=== PATIENT | male | born 1965 | race Caucasian/White ===

== ENCOUNTER 2018-04-27 09:48 | Outpatient (REF) | payer OTHER, SELFPAY ==
[2018-04-27 21:42] LABS: TSH 3.77 uIU/mL (0.358-3.74)
[2018-04-27 22:15] LABS: FREE T4 0.67 ng/dL (0.76-1.46)
[2018-04-28 18:15] LABS: T3, Total 98 ng/dl (97-169)
== END 2018-04-27 10:08 ==
LOC: NCHCN 09:48
PROVIDERS: PCP Family Medicine; Visit Provider Family Medicine
DX: E05.90 Thyrotoxicosis, unspecified without thyrotoxic crisis or storm (principal)
CPT/HCPCS: 84439; 84443; 84480

== ENCOUNTER 2019-01-21 01:28 | Outpatient (CLI) | payer OTHER, SELFPAY ==
[2019-01-21 12:49] LABS: ALT 25 U/L (16-63); AST 20 U/L (15-37); Albumin 4.2 g/dL (3.4-5.0); Alkaline Phosphatase 56 U/L (46-116); Anion Gap 9.5 mmol/L (3-11); BUN 18 mg/dL (7-18); Bilirubin, Total 0.5 mg/dL (0.2-1.0); CO2 28.5 mmol/L (21.0-32.0); CREATININE 1.11 mg/dL (0.70-1.30); Calcium 8.8 mg/dL (8.5-10.1); Calculated LDL 137 mg/dL; Chloride 103 mmol/L (98-107); Cholesterol 234 mg/dL (<200); Glucose 107 mg/dL (74-106); HDL Cholesterol 43 mg/dL (40-60); Potassium 4.5 mmol/L (3.5-5.1); Sodium 141 mmol/L (136-145); TSH 0.65 uIU/mL (0.36-3.74); Total Protein 7.1 g/dL (6.4-8.2); Triglyceride 272 mg/dL (<150)
[2019-01-24 11:11] LABS: PSA, Screening 1.1 ng/mL (0.0-3.5)
== END 2019-01-21 01:48 ==
PROVIDERS: PCP Family Medicine; Referring Provider Internal Medicine Endocrinology, Diabetes & Metabolism; Visit Provider Family Medicine
DX: Z00.00 Encounter for general adult medical examination without abnormal findings (principal); E78.5 Hyperlipidemia, unspecified; Z12.5 Encounter for screening for malignant neoplasm of prostate
CPT/HCPCS: 36415; 80053; 80061; 84153; 84443

== ENCOUNTER 2019-12-20 16:41 | Outpatient (REF) | payer OTHER, SELFPAY ==
[2019-12-20 19:16] LABS: ALT 27 U/L (16-63); AST 28 U/L (15-37); Albumin 3.9 g/dL (3.4-5.0); Alkaline Phosphatase 54 U/L (46-116); Anion Gap 6.1 mmol/L (3-11); BUN 19 mg/dL (7-18); Bilirubin, Total 0.4 mg/dL (0.2-1.0); CO2 29.9 mmol/L (21.0-32.0); CREATININE 1.14 mg/dL (0.70-1.30); Chloride 102 mmol/L (98-107); Cholesterol 227 mg/dL (<200); Glucose 100 mg/dL (74-106); HDL Cholesterol 42 mg/dL (40-60); Potassium 4.8 mmol/L (3.5-5.1); Sodium 138 mmol/L (136-145); TSH (W/Ref FT4) 4.04 uIU/mL (0.36-3.74); Total Protein 6.9 g/dL (6.4-8.2); Triglyceride 478 mg/dL (<150)
[2019-12-20 19:29] LABS: LDL CHOLESTEROL 125 mg/dL (<100)
[2019-12-20 19:47] LABS: FREE T4 0.98 ng/dL (0.76-1.46)
== END 2019-12-20 17:01 ==
LOC: NCHCN 16:41
PROVIDERS: PCP Family Medicine; Visit Provider Family Medicine
DX: E78.5 Hyperlipidemia, unspecified (principal); Z00.00 Encounter for general adult medical examination without abnormal findings; E89.0 Postprocedural hypothyroidism
CPT/HCPCS: 80053; 80061; 83721; 84439; 84443

== ENCOUNTER 2020-12-20 11:45 | Outpatient (REF) | payer BC, SELFPAY ==
[2020-12-20 16:00] LABS: ALT 28 U/L (16-63); Calculated LDL 115 mg/dL (<100); Cholesterol 207 mg/dL (<200); HDL Cholesterol 42 mg/dL (40-60); TSH (W/Ref FT4) 0.45 uIU/mL (0.36-3.74); Triglyceride 252 mg/dL (<150)
[2020-12-20 22:39] LABS: PSA, Screening 1.6 ng/mL (0.0-3.5)
== END 2020-12-20 11:46 | disposition home or self-care (01) ==
LOC: NCHCN 11:45
PROVIDERS: PCP Family Medicine; Visit Provider Family Medicine
DX: E78.5 Hyperlipidemia, unspecified (principal); E89.0 Postprocedural hypothyroidism; Z00.00 Encounter for general adult medical examination without abnormal findings; Z12.5 Encounter for screening for malignant neoplasm of prostate
CPT/HCPCS: 80061; 84153; 84443; 84460

== ENCOUNTER 2021-12-24 14:46 | Outpatient (REF) | payer BC, SELFPAY ==
[2021-12-24 15:52] LABS: AST 28 U/L (15-37); Anion Gap 6.2 mmol/L (3-11); BUN 24 mg/dL (7-18); CO2 29.8 mmol/L (21.0-32.0); CREATININE 1.4 mg/dL (0.70-1.30); Calcium 9.2 mg/dL (8.5-10.1); Chloride 102 mmol/L (98-107); Estimated GFR 59.36 (mL/min/1.73m2); FREE T4 1.01 ng/dL (0.76-1.46); Glucose 110 mg/dL (74-106); Potassium 4.3 mmol/L (3.5-5.1); Sodium 138 mmol/L (136-145); TSH 1.43 uIU/mL (0.36-3.74)
[2021-12-24 16:07] LABS: Calculated LDL 163 mg/dL (<100); Cholesterol 271 mg/dL (<200); HDL Cholesterol 50 mg/dL (40-60); Triglyceride 290 mg/dL (<150)
[2021-12-25 17:34] LABS: T3,Free 3.2 pg/mL (2.8-5.3)
== END 2021-12-24 14:47 | disposition home or self-care (01) ==
LOC: NCHCN 14:46
PROVIDERS: PCP Family Medicine; Visit Provider Family Medicine
DX: Z00.00 Encounter for general adult medical examination without abnormal findings (principal); E89.0 Postprocedural hypothyroidism; E78.5 Hyperlipidemia, unspecified
CPT/HCPCS: 80048; 80061; 84439; 84443; 84450; 84481

== ENCOUNTER 2022-01-31 08:06 | Emergency (ER) | payer BC, SELFPAY ==
--- NOTE | 2022-01-31 08:15 | DI.RAD_ITS ---
Exam(s) XR PELVIS AP EXAM: XR PELVIS AP CLINICAL HISTORY: Trauma. TECHNIQUE: 2D digital imaging was performed. One image was obtained. COMPARISON: No exams were available for comparison FINDINGS: BONES: No acute fracture is present. No bony destructive lesion is seen. JOINTS: No dislocation present. No joint space narrowing is present. SOFT TISSUE: Normal. IMPRESSION: Unremarkable radiographs of the pelvis. DATA REPOSITORY: RADIATION DOSE DELIVERED:
--- NOTE | 2022-01-31 08:15 | DI.RAD_ITS ---
Exam(s) XR KNEE LT 3V AP,LAT,KYLAH EXAM: XR KNEE LT 3V AP,LAT,KYLAH CLINICAL HISTORY: Trauma, pain. TECHNIQUE: 2D digital imaging was performed of the left knee. Three images were obtained. AP, late ral and PA tunnel views were obtained. COMPARISON: No priors for comparison. FINDINGS: BONES: No acute fracture is present. No bony destructive lesion is seen. JOINTS: The knee is normally aligned. No joint effusion is seen. SOFT TISSUE: Normal. IMPRESSION: Normal radiographs of the left knee. DATA REPOSITORY: RADIATION DOSE DELIVERED:
--- NOTE | 2022-01-31 08:15 | DI.RAD_ITS ---
Exam(s) XR WRIST LT COMPLETE EXAM: XR WRIST LT COMPLETE CLINICAL HISTORY: Trauma/ Laceration. TECHNIQUE: 2D digital imaging was performed of the left wrist. Three images were obtained. PA, obl ique and lateral views were obtained. COMPARISON: No exams were available for comparison FINDINGS: BONES: There is an acute comminuted fracture of the distal metaphysis of the left radius. There is p osterior displacement of the distal fracture of about 1/3 shaft's width. No bony destructive lesion is seen. JOINTS: The carpal bones are normally aligned. SOFT TISSUE: Normal. IMPRESSION: Acute comminuted displaced distal left radial fracture. DATA REPOSITORY: RADIATION DOSE DELIVERED:
[2022-01-31 08:22] VITALS: BP 133/75; PULSE 72; RESP 18; TEMP 36.6; O2SAT 97
--- NOTE | 2022-01-31 08:27 | W.ED.GENAD ---
Discharge Plan Disposition Patient Disposition: Critical Access Hospital Specific Critical Access Facility: [facility] Condition: Stable Discharge Details Clinical Impression: Trauma, Open fracture of bone of left wrist Primary Care Provider: Tana Tapia V ED Provider: Danita Espana Home Meds and New Rx's Prescriptions: No Action levothyroxine 150 mcg tablet 1 tab PO DAILY rosuvastatin 10 mg tablet 1 tab PO DAILY Label Comments: Take 1 tablet by mouth once a day tadalafil 10 mg tablet 1 tab PO DAILY PRN magnesium oxide 400 mg magnesium Tablet 400 mg PO DAILY Discharge Instructions Instructions: Wrist Fracture in Adults (ED) Additional Instructions: Go directly to [facility]. Do not eat anything or drink anything on the way. Please go to the main entrance and check-in for day surgery. Dr. Dawson orthopedic surgeon will be seeing you there and is aware of you coming. Referrals: Tana Tapia MD [Primary Care Provider] - 1 week Discharge Data Discharge Date/Time-TO BE ENTERED AT DEPARTURE: 01/31/22 13:56 Medical Decision Making 56-year-old male presents to the ER with a chief complaint of a slip and fall off a 12 to 15 foot ledge just prior to arrival. 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 He denies any loss of consciousness, denies any headache C-spine tenderness. He does have left wrist deformity, swelling and pain with a laceration on the volar side. Bleeding controlled with dressing. He denies any back chest pelvis pain, he also complains of some left knee soreness. He is alert and oriented x4. Past medical history includes hypothyroidism, hypercholesterolemia, history of right carotid artery stenosis. Patient does have Cialis or tadalafil on his med list. CT head C-spine ordered, chest x-ray pelvis x-ray left knee x-ray and left wrist x-ray. I do suspect possible left open fracture of the wrist. Fentanyl, Zofran and a Tdap ordered. IV and Screening labs. 0849: Patient declining fentanyl and Zofran, IV Tylenol ordered. Hematoma block performed patient tolerated well anesthesia achieved. Laceration cleaned with chlorhexidine and Betadine, while cleaning did notice a vein that began to bleed, tied off with four-point 0 Vicryl and four-point 0 Ethilon bleeding controlled. Laceration left open. Iodoform gauze sterile dressing applied. 1208: Patient placed in a reverse sugar-tong volar and dorsal splint open on all 4 sides. Attempted to reduce using finger traps and gravity alignment seems better. 1215: I did discuss possible transfer to [facility] due to the mechanism of trauma and or surrounding area hospital for orthopedic surgery speciality, patient declines transfer by ambulance he would prefer to go POV. He does have his here who can drive him. He has remained hemodynamically stable alert and oriented x4 throughout his entire stay. Consulted with [facility] Ortho who recommends surgery I&D and ORIF however, he is not on-call today. I will look into transferring patient for orthopedic consultation. Images pushed to [facility] and [facility]. 1218: Call made to [facility] [place] [facility] to speak with their Ortho installation specialist, Dr. Hand, Contact will reach out to their ortho installation specialist. 1236: [facility] transfer center called for transfer request for orthopedic and trauma speciality. 1329: Spoke with Dr. Dawson with Orthopedic surgery at [facility], he reccommends pushing of additional images and patient to go directly to [facility] and register for Day surgery, keep IV in place. Discussed plan of care and recommendation for transfer plan, he declines ambulance transfer at this time and would prefer to go POV. Patient stable to go POV. 1341: Reevaluation of extremities, CMS is intact and sensation is returning after the infiltration of the bupivacaine. Patient has remained hemodynamically stable alert and oriented throughout the remainder of his stay. Patient given packet of his labs, chart and EMTALA form, instructed to go directly to [facility] and check and he verbalizes understanding is in agreement with plan. Patient instructed to stay n.p.o. Patient's IV wrapped by air liaison and special staff prior to discharge. This text was generated using [employer] dictation system, please disregard any oddities of phrase or misspellings. Medical Records Medical records reviewed: Yes I reviewed the patient's medical records. Imaging Data Radiologic Study: Imaging: CT Scan Radiologist's impression: EXAM: CT HEAD WO CLINICAL HISTORY: Trauma. TECHNIQUE: Imaging Protocol: Axial computed tomography images with coronal and sagittal reformatted images were created and reviewed COMPARISON: No exams were available for comparison FINDINGS: Ventricles and Extra axial spaces: Normal in size and morphology for the patient's age. Hemorrhage: None. Cerebral parenchyma: No acute territorial infarct. Midline shift: None. Brainstem/Cerebellum: Normal. Calvarium: Normal. Visualized Paranasal sinuses/Mastoids: Clear. Soft Tissues: Unremarkable. IMPRESSION: 1. No acute intracranial process. 2. Findings were discussed with the emergency department at 10:20 a.m. on 01/31/2022. EXAM: CT CERVICAL SPINE WO CLINICAL HISTORY: Fall, Closed head Injury. TECHNIQUE: Imaging Protocol: Axial computed tomography images with coronal and sagittal reformatted images were created and reviewed COMPARISON: No exams were available for comparison FINDINGS: Bones: No acute fracture or subluxation. There are degenerative changes seen in the cervical spine. There is straightening of the normal cervical lordosis. This may be due to muscle spasm or patient positioning. Soft Tissues: Unremarkable. Lung Apices: Clear. IMPRESSION: 1. No acute fracture or subluxation in the cervical spine. 2. Findings were discussed with Dr. Hallman at 9:35 a.m. on 01/31/2022. Radiologic Study #2: Imaging: X-Ray Radiologist's impression: EXAM: XR WRIST LT COMPLETE CLINICAL HISTORY: Trauma/ Laceration. TECHNIQUE: 2D digital imaging was performed of the left wrist. Three images were obtained. PA, oblique and lateral views were obtained. COMPARISON: No exams were available for comparison FINDINGS: BONES: There is an acute comminuted fracture of the distal metaphysis of the left radius. There is posterior displacement of the distal fracture of about 1/3 shaft's width. No bony destructive lesion is seen. JOINTS: The carpal bones are normally aligned. SOFT TISSUE: Normal. IMPRESSION: Acute comminuted displaced distal left radial fracture. Radiologic Study #3: Imaging: X-Ray My impression: CT head C-spine within normal limits no acute intracranial abnormality no hemorrhage. Unremarkable chest, pelvis x-rays, normal radiographs of the left knee. Lab Data Lab results reviewed: Yes I reviewed the patient's lab results. Labs: Laboratory Tests Range/Units 01/31/22 01/31/22 01/31/22 08:30 08:37 08:37 WBC (4.4-10.8) 10^3/uL RBC (4.36-5.78) 10^6/uL Hgb (13.5-17.5) g/dL Hct (40.0-50.0) % MCV (80-95) fL MCH (27.0-33.0) pg MCHC (32.0-36.0) % RDW (11.8-14.1) % Plt Count (130-400) 10^3/uL MPV (8.0-11.0) fL Immature Gran % Neutrophils % Lymphocytes % Monocytes % Eosinophils % Basophils % Nucleated RBC % (0.0-0.3) % Absolute Neutrophils (1.2-6.7) 10^3/uL Absolute Lymphocytes (1.2-3.4) 10^3/uL Absolute Monocytes (0.1-0.8) 10^3/uL Absolute Eosinophils (0.0-0.7) 10^3/uL Absolute Basophils (0.0-0.2) 10^3/uL Sodium (136-145) mmol/L 137 Potassium (3.5-5.1) mmol/L 4.3 Chloride (98-107) mmol/L 101 Carbon Dioxide (21.0-32.0) mmol/L 31.4 Anion Gap (3-11) mmol/L 4.6 BUN (7-18) mg/dL 21 H Creatinine (0.70-1.30) mg/dL 1.4 H Est GFR (CKD-EPI 2020) (mL/min/1.73m2) 59.36 Glucose (74-106) mg/dL 152 H Calcium (8.5-10.1) mg/dL 8.8 Magnesium (1.8-2.4) mg/dL 2.3 Total Bilirubin (0.2-1.0) mg/dL 0.5 AST (15-37) U/L 35 ALT (16-63) U/L 35 Alkaline Phosphatase (46-116) U/L 53 Total Protein (6.4-8.2) g/dL 7.3 Albumin (3.4-5.0) g/dL 4.2 Lipase (73-393) U/L 105 Urine Color (Yellow) Yellow Urine Clarity (Clear) Clear Urine pH (5-8) 6.5 Ur Specific [place] (1.005-1.025) >= 1.030 H Urine Protein (Negative) mg/dL 100 H Urine Ketones (Negative) mg/dL Negative Urine Blood (Negative) Negative Urine Nitrite (Negative) Negative Urine Bilirubin (Negative) Negative Urine Urobilinogen (Up TO 0.2) EU/dL 0.2 Ur Leukocyte Esterase (Negative) Negative Urine RBC (0-2) HPF Negative Urine WBC (0-5) HPF Negative Ur Epithelial Cells (Negative) HPF Rare Urine Crystals (Negative) HPF Negative Urine Bacteria (Negative) HPF Negative Urine Casts (Negative) LPF 0-2 Hyaline Urine Mucus (Negative) Trace Ur Culture Indicated? No Urine Glucose (Negative) mg/dL Negative Range/Units 01/31/22 08:37 WBC (4.4-10.8) 10^3/uL 6.26 RBC (4.36-5.78) 10^6/uL 4.65 Hgb (13.5-17.5) g/dL 14.1 Hct (40.0-50.0) % 42.8 MCV (80-95) fL 92 MCH (27.0-33.0) pg 30.3 MCHC (32.0-36.0) % 32.9 RDW (11.8-14.1) % 12.5 Plt Count (130-400) 10^3/uL 256 MPV (8.0-11.0) fL 9.3 Immature Gran % 0.2 Neutrophils % 66.2 Lymphocytes % 23.5 Monocytes % 6.9 Eosinophils % 2.2 Basophils % 1.0 Nucleated RBC % (0.0-0.3) % 0.0 Absolute Neutrophils (1.2-6.7) 10^3/uL 4.15 Absolute Lymphocytes (1.2-3.4) 10^3/uL 1.47 Absolute Monocytes (0.1-0.8) 10^3/uL 0.43 Absolute Eosinophils (0.0-0.7) 10^3/uL 0.14 Absolute Basophils (0.0-0.2) 10^3/uL 0.06 Sodium (136-145) mmol/L Potassium (3.5-5.1) mmol/L Chloride (98-107) mmol/L Carbon Dioxide (21.0-32.0) mmol/L Anion Gap (3-11) mmol/L BUN (7-18) mg/dL Creatinine (0.70-1.30) mg/dL Est GFR (CKD-EPI 2020) (mL/min/1.73m2) Glucose (74-106) mg/dL Calcium (8.5-10.1) mg/dL Magnesium (1.8-2.4) mg/dL Total Bilirubin (0.2-1.0) mg/dL AST (15-37) U/L ALT (16-63) U/L Alkaline Phosphatase (46-116) U/L Total Protein (6.4-8.2) g/dL Albumin (3.4-5.0) g/dL Lipase (73-393) U/L Urine Color (Yellow) Urine Clarity (Clear) Urine pH (5-8) Ur Specific [place] (1.005-1.025) Urine Protein (Negative) mg/dL Urine Ketones (Negative) mg/dL Urine Blood (Negative) Urine Nitrite (Negative) Urine Bilirubin (Negative) Urine Urobilinogen (Up TO 0.2) EU/dL Ur Leukocyte Esterase (Negative) Urine RBC (0-2) HPF Urine WBC (0-5) HPF Ur Epithelial Cells (Negative) HPF Urine Crystals (Negative) HPF Urine Bacteria (Negative) HPF Urine Casts (Negative) LPF Urine Mucus (Negative) Ur Culture Indicated? Urine Glucose (Negative) mg/dL Sign Out No HPI General Mode of arrival: ambulatory. Date/Time Provider Initiated Documentation: 01/31/22 08:15. Limitations to Documentation: no limitations. Information obtained by: patient and RN notes reviewed. History of Present Illness with intensity rated at 9. HPI Narrative: 56-year-old male presents to the ER with a chief complaint of a slip and fall off a 12 to 15 foot ledge just prior to arrival. Patient was cutting some trees and had a chainsaw with him was wearing a hard hat when he slipped and fell landing on his left side. He denies any loss of consciousness, denies any headache C-spine tenderness. He does have left wrist deformity, swelling and pain with a laceration on the palmar side. Bleeding controlled with dressing. He denies any back chest pelvis pain, he also complains of some left knee soreness. He is alert and oriented x4. Past medical history includes hypothyroidism, hypercholesterolemia, history of right carotid artery stenosis. Patient does have Cialis or tadalafil on his med list. Related Data Home Medications Medication Instructions Recorded Confirmed levothyroxine 150 mcg tablet 1 tab PO DAILY 01/31/22 01/31/22 magnesium oxide 400 mg PO DAILY 01/31/22 01/31/22 rosuvastatin 10 mg tablet 1 tab PO DAILY 01/31/22 01/31/22 tadalafil 10 mg tablet 1 tab PO DAILY PRN 01/31/22 01/31/22 Allergies Allergy/AdvReac Type Severity Reaction Status Date / Time No Known Allergies Allergy Unverified 05/11/15 11:23 General Stated Complaint: Trauma SERGIO: 2 Review of Systems All systems reviewed & are unremarkable except as noted in HPI and below Constitutional Constitutional: Denies headache(s) ENT Ears, Nose, Mouth, and Throat: Denies dizziness and Denies headache(s) Cardiovascular Cardiovascular: Denies chest pain, Denies diaphoresis and Denies dyspnea Respiratory Respiratory: Denies cough and Denies dyspnea Gastrointestinal Gastrointestinal: Denies abdominal pain, Denies nausea and Denies vomiting Musculoskeletal Musculoskeletal: Reports as per HPI, Reports deformity and Reports arthralgias Neurologic Neurologic: Reports as per HPI, Denies dizziness and Denies headache(s) PFS All Active Problems (Updated 01/31/22 @ 13:54 by Danita Espana NP) Trauma (Acute) Open fracture of bone of left wrist (Acute) Social History Smoking/Tobacco Use Status: Never Smoking risk assessment performed?: Yes Alcohol Intake: current Alcohol Intake frequency: a few times a week Alcohol type: beer Drug use: Never Substance use type: does not use Do you feel safe at home: Yes Do you feel safe in your relationship?: Yes Exam Narrative Exam Narrative: General: Well Developed, Awake and Alert, conversant. Skin: Warm and Dry HEENT: Head: No palpable deformities, Normocephalic, superficial abrasion noted to his left frontal scalp Eyes: Pupils PERRLA, EOM's intact. No periorbital eccymosis or step off Ears: Canal patent. Tympanic membranes are clear . No ventura's sign, no hemptympanum. Nose/Face: Patient did have a bloody nose on scene, does have some dried blood in bilateral naris no septal hematoma, no deformity on the bridge of the nose denies any tenderness with palpation, facial bones nontender to palpation and stable with manipulation. Mouth/Throat: No intraoral trauma. Teeth and mandible are intact. Neck: No midline tenderness, no step off, no deformity to palpation of C-spine. Trachea midline. Chest: No surface trauma. Nontender without crepitus or deformity. Lungs clear to ausculatation bilaterally. Heart: RRR, no rubs, murmurs or gallop. Abdomen: No abrasions, ecchymosis, or surface trauma. Nondistended. Nontender to palpation no guarding, rebound, or rigidity. C-spine, T, and L-spine: No crepitus, no step-off nontender with palpation Pelvis: Nontender to palpation and stable to compression. Femoral pulses strong and equal Extremities: no surface trauma. Sensation intact. Peripheral pulses intact and equal. Complaining of left knee pain no obvious deformity noted. Neuro: ANO x4, GCS 15, cranial nerves II through XII intact. Motor and sensory exam nonfocal. Reflexes are symmetric. Course Vital Signs Vital signs: Vital Signs Temperature 36.6 C 01/31/22 08:22 Pulse 72 01/31/22 08:22 Respiratory Rate 18 01/31/22 08:22 Blood Pressure 133/75 01/31/22 08:22 Pulse Oximetry 97 01/31/22 08:22 Temperature 36.6 C 01/31/22 08:22 Temperature Source Temporal Artery Scan 01/31/22 08:22 Pulse 72 01/31/22 08:22 Respiratory Rate 18 01/31/22 08:22 Respiratory Effort Non-Labored 01/31/22 08:24 Blood Pressure 133/75 01/31/22 08:22 Blood Pressure Position Sitting 01/31/22 08:22 Pulse Oximetry 97 01/31/22 08:22 Oxygen Delivery Method Room Air 01/31/22 08:22 Oxygen Flow Rate 0 01/31/22 08:22 Pain Level 6 01/31/22 08:22 Procedures Nerve Block Nerve Block 1: Time out performed: No Local Anesthetic: Lidocaine 1% and Bupivicaine 0.5% Amount of anesthesia used (mL): 10 Side: left Nerve Blocks: hematoma block Patient Tolerated Procedure: well Complications: none Orthopedic Splinting/Casting Injury #1: Side: left Upper Extremity Injury Location: wrist Upper Extremity Immobilizer: sugartong splint (Reverse sugartong, plaster, webroll, stockinette) and Alvino wrap PAWSS Have you Been Recently Intoxicated or Drunk Within the Last 30 days?: No Have you Ever Experienced Previous Episodes of Alcohol Withdrawal?: No Have you ever Experienced Withdrawal Seizures?: No Have you ever Experienced Delirium Tremens(DT)s?: No Have you ever undergone Alcohol Rehabilitation Treatment (i.e, inpt ot outpatient treatment programs)?: No Have you ever Experienced Blackouts?: No Have you ever Combined Alcohol with other Downers within the last 90 days?: No Have you ever Combined Alcohol with any other Substance of Abuse during the last 90 days?: No Positive Blood Alcohol level on Presentation? [PCS.BAL]: No Evidence of Increased Autonomic Activity (i.e. HR>120, tremor, sweating, agitation, nausea)?: No Result: 0
[2022-01-31 08:32] VITALS: BP 133/75; PULSE 67
[2022-01-31 08:37] LABS: Bilirubin Negative (Negative); Blood Negative (Negative); Clarity Clear (Clear); Glucose Negative (Negative); Ketones Negative (Negative); Leukocyte Esterase Negative (Negative); Nitrite Negative (Negative); Specific Gravity >= 1.030 (1.005-1.025); Urobilinogen 0.2 EU/dL (Up TO 0.2); pH 6.5 (5-8)
[2022-01-31 08:43] LABS: Bacteria Negative HPF (Negative); C & S Indicated? No; Casts 0-2 Hyaline LPF (Negative); Crystals Negative HPF (Negative); Epithelial Cells Rare HPF (Negative); Mucus Trace (Negative); RBC Negative HPF (0-2); WBC Negative HPF (0-5)
[2022-01-31 08:44] LABS: Abs Immature Grans 0.01 10^3/uL (0.0-0.06); Absolute Basophil Count 0.06 10^3/uL (0.0-0.2); Absolute Eosinophil Count 0.14 10^3/uL (0.0-0.7); Absolute Lymphocyte Count 1.47 10^3/uL (1.2-3.4); Absolute Monocyte Count 0.43 10^3/uL (0.1-0.8); Absolute Neutrophil Count 4.15 10^3/uL (1.2-6.7); Eosinophils % 2.2; HCT 42.8 % (40.0-50.0); HGB 14.1 g/dL (13.5-17.5); Immature Grans % 0.2; Lymphocytes % 23.5; MCH 30.3 pg (27.0-33.0); MCHC 32.9 % (32.0-36.0); MCV 92 fL (80-95); MPV 9.3 fL (8.0-11.0); Monocytes % 6.9; Neutrophils % 66.2; Platelet Count 256 10^3/uL (130-400); RBC 4.65 10^6/uL (4.36-5.78); RDW 12.5 % (11.8-14.1); RDW-SD 42.2 fL; WBC 6.26 10^3/uL (4.4-10.8)
[2022-01-31 08:47] VITALS: BP 113/79; PULSE 75
[2022-01-31 08:58] LABS: Lipase 105 U/L (73-393); Magnesium 2.3 mg/dL (1.8-2.4)
[2022-01-31 09:01] LABS: ALT 35 U/L (16-63); AST 35 U/L (15-37); Albumin 4.2 g/dL (3.4-5.0); Alkaline Phosphatase 53 U/L (46-116); Anion Gap 4.6 mmol/L (3-11); BUN 21 mg/dL (7-18); Bilirubin, Total 0.5 mg/dL (0.2-1.0); CO2 31.4 mmol/L (21.0-32.0); CREATININE 1.4 mg/dL (0.70-1.30); Calcium 8.8 mg/dL (8.5-10.1); Chloride 101 mmol/L (98-107); Estimated GFR 59.36 (mL/min/1.73m2); Glucose 152 mg/dL (74-106); Potassium 4.3 mmol/L (3.5-5.1); Sodium 137 mmol/L (136-145); Total Protein 7.3 g/dL (6.4-8.2)
--- NOTE | 2022-01-31 09:03 | DI.CT_ITS ---
Exam(s) CT CERVICAL SPINE WO EXAM: CT CERVICAL SPINE WO CLINICAL HISTORY: Fall, Closed head Injury. TECHNIQUE: Imaging Protocol: Axial computed tomography images with coronal and sagittal reformatted images were created and reviewed COMPARISON: No exams were available for comparison FINDINGS: Bones: No acute fracture or subluxation. There are degenerative changes seen in the cervical spine. There is straightening of the normal cervical lordosis. This may be due to muscle spasm or patient p ositioning. Soft Tissues: Unremarkable. Lung Apices: Clear. IMPRESSION: 1. No acute fracture or subluxation in the cervical spine. 2. Findings were discussed with Dr. Hallman at 9:35 a.m. on 01/31/2022. RADIATION DOSE DELIVERED: 612.98mGy.cm Total DLP 612.98mGy.cm Total DLP DATA REPOSITORY: All CT scans at this facility are submitted to the National Radiology Data Registry (NRDR) Dose Index Registry (DIR) with the [employer] ([employer]). RADIATION OPTIMIZATION: All CT scans at this facility use at least one of these dose optimization te chniques: automated exposure control; mA and/or kV adjustment per patient size (includes targeted exa ms where dose is matched to clinical indication); or iterative reconstruction.
--- NOTE | 2022-01-31 09:30 | DI.RAD_ITS ---
Exam(s) XR CHEST 2V PA LATERAL EXAM: XR CHEST 2V PA LATERAL CLINICAL HISTORY: Trauma TECHNIQUE: 2D digital imaging was performed of the chest. Three images were obtained. PA and later al views were obtained. COMPARISON: No exams were available for comparison FINDINGS: MEDIASTINUM: Normal. HEART: Normal. PULMONARY VASCULATURE: Normal. LUNGS: Clear. PLEURAL SPACE: No pleural effusion or pneumothorax. BONE:Within normal limits for the patient's age. OTHER FINDINGS:Normal. IMPRESSION: No acute pulmonary findings. DATA REPOSITORY: RADIATION DOSE DELIVERED:
[2022-01-31] MEDS: ACETAMINOPHEN 1,000 MG/100 ML BTL 400 MG IVPB (09:31)
--- NOTE | 2022-01-31 09:51 | DI.CT_ITS ---
Exam(s) CT HEAD WO EXAM: CT HEAD WO CLINICAL HISTORY: Trauma. TECHNIQUE: Imaging Protocol: Axial computed tomography images with coronal and sagittal reformatted images were created and reviewed COMPARISON: No exams were available for comparison FINDINGS: Ventricles and Extra axial spaces: Normal in size and morphology for the patient's age. Hemorrhage: None. Cerebral parenchyma: No acute territorial infarct. Midline shift: None. Brainstem/Cerebellum: Normal. Calvarium: Normal. Visualized Paranasal sinuses/Mastoids: Clear. Soft Tissues: Unremarkable. IMPRESSION: 1. No acute intracranial process. 2. Findings were discussed with the emergency department at 10:20 a.m. on 01/31/2022. RADIATION DOSE DELIVERED: 799.94mGy.cm Total DLP DATA REPOSITORY: All CT scans at this facility are submitted to the National Radiology Data Registry (NRDR) Dose Index Registry (DIR) with the [employer] (ACR). RADIATION OPTIMIZATION: All CT scans at this facility use at least one of these dose optimization te chniques: automated exposure control; mA and/or kV adjustment per patient size (includes targeted exa ms where dose is matched to clinical indication); or iterative reconstruction.
[2022-01-31] MEDS: ceFAZolin 2 GM/50 ML BAG IVPB (09:58)
[2022-01-31 12:34] VITALS: BP 143/85; PULSE 72; RESP 18; O2SAT 97
--- NOTE | 2022-01-31 12:58 | DI.RAD_ITS ---
Exam(s) XR WRIST LT LIMITED EXAM: XR WRIST LT LIMITED CLINICAL HISTORY: Post reduction. TECHNIQUE: 2D digital imaging was performed of the left wrist. Two images were obtained. PA and la teral views were obtained. COMPARISON: CR XR WRIST LT COMPLETE from 01/31/2022 FINDINGS: BONES: There has been no appreciable change in alignment of the comminuted distal left radial fractur e. No bony destructive lesion is seen. JOINTS: The carpal bones are normally aligned. SOFT TISSUE: The patient's wrist is in a cast. IMPRESSION: Stable alignment of the comminuted distal left radial fracture. DATA REPOSITORY: RADIATION DOSE DELIVERED:
== END 2022-01-31 13:56 | disposition critical access hospital (66) ==
PROVIDERS: Emergency Provider Registered Nurse Emergency; PCP Family Medicine
DX: S52.502A Unspecified fracture of the lower end of left radius, initial encounter for closed fracture (principal); E78.00 Pure hypercholesterolemia, unspecified; Z23 Encounter for immunization; W17.89XA Other fall from one level to another, initial encounter; Y93.89 Activity, other specified; Y92.69 Other specified industrial and construction area as the place of occurrence of the external cause
CPT/HCPCS: 29125; 36415; 73562; 80053; 83690; 90471; 96365; 96375; 99285; 70450; 71046; 72125; 72170; 73100; 73110; 81003; 81015; 83735; 85025; J0131; J0690

== ENCOUNTER 2022-04-23 15:58 | Outpatient (REF) | payer BC, SELFPAY ==
[2022-04-23 15:06] LABS: Hemoglobin A1C 5.7 % (<5.7)
[2022-04-23 15:16] LABS: Anion Gap 10.5 mmol/L (3-11); BUN 17 mg/dL (7-18); CO2 25.5 mmol/L (21.0-32.0); CREATININE 1.1 mg/dL (0.70-1.30); Calculated LDL 131 mg/dL (<100); Chloride 105 mmol/L (98-107); Cholesterol 231 mg/dL (<200); Estimated GFR 78.79 (mL/min/1.73m2); Glucose 107 mg/dL (74-106); HDL Cholesterol 49 mg/dL (40-60); Potassium 3.9 mmol/L (3.5-5.1); Sodium 141 mmol/L (136-145); Triglyceride 255 mg/dL (<150)
== END 2022-04-23 15:59 | disposition home or self-care (01) ==
LOC: NCHCN 15:58
PROVIDERS: PCP Family Medicine; Visit Provider Family Medicine
DX: Z00.00 Encounter for general adult medical examination without abnormal findings (principal); E78.5 Hyperlipidemia, unspecified; R03.0 Elevated blood-pressure reading, without diagnosis of hypertension; Z13.1 Encounter for screening for diabetes mellitus
CPT/HCPCS: 80048; 80061; 83036

== ENCOUNTER 2022-08-18 10:28 | Outpatient (REF) | payer BC, SELFPAY ==
[2022-08-18 19:43] LABS: AST 32 U/L (15-37); Calculated LDL 92 mg/dL (<100); Cholesterol 168 mg/dL (<200); HDL Cholesterol 44 mg/dL (40-60); Triglyceride 161 mg/dL (<150)
[2022-08-18 20:01] LABS: Creatine Kinase 568 U/L (39-308)
== END 2022-08-18 10:29 | disposition home or self-care (01) ==
LOC: NCHCN 10:28
PROVIDERS: PCP Family Medicine; Visit Provider Family Medicine
DX: Z00.00 Encounter for general adult medical examination without abnormal findings (principal); E78.5 Hyperlipidemia, unspecified
CPT/HCPCS: 80061; 82550; 84450

== ENCOUNTER 2022-12-10 15:21 | Outpatient (REF) | payer BC, SELFPAY ==
[2022-12-10 19:57] LABS: Creatine Kinase 311 U/L (39-308)
== END 2022-12-10 15:22 | disposition home or self-care (01) ==
LOC: NCHCN 15:21
PROVIDERS: PCP Family Medicine; Visit Provider Family Medicine
DX: E78.5 Hyperlipidemia, unspecified (principal); Z00.00 Encounter for general adult medical examination without abnormal findings
CPT/HCPCS: 82550

== ENCOUNTER 2023-03-16 16:28 | Outpatient (REF) | payer BC, SELFPAY ==
[2023-03-16 22:21] LABS: Creatine Kinase 203 U/L (39-308); TSH (W/Ref FT4) 0.36 uIU/mL (0.36-3.74)
[2023-03-16 22:27] LABS: Hemoglobin A1C 5.7 % (<5.7)
[2023-03-17 16:53] LABS: FREE T4 1.06 ng/dL (0.76-1.46)
[2023-03-18 09:52] LABS: Lyme Ab w Rflx to Lyme Confirm Negative (Negative)
[2023-03-19 20:40] LABS: Anaplasma phagocytophilum Negative (Negative); B. miyamotoi PCR Negative (Negative); Babesia divergens/MO-1 Negative (Negative); Babesia duncani Negative (Negative); Babesia microti Negative (Negative); Ehrlichia chaffeensis Negative (Negative); Ehrlichia ewingii/canis Negative (Negative); Ehrlichia muris eauclairensis Negative (Negative)
== END 2023-03-16 16:29 | disposition home or self-care (01) ==
LOC: NCHCN 16:28
PROVIDERS: PCP Family Medicine; Visit Provider Nurse Practitioner Family
DX: E03.9 Hypothyroidism, unspecified (principal); E78.5 Hyperlipidemia, unspecified; R73.09 Other abnormal glucose; T14.8XXA Other injury of unspecified body region, initial encounter; W57.XXXA Bitten or stung by nonvenomous insect and other nonvenomous arthropods, initial encounter
CPT/HCPCS: 82550; 87798; 83036; 84439; 84443; 86618

== ENCOUNTER 2023-06-25 15:01 | Outpatient (REF) | payer BC, SELFPAY ==
[2023-06-25 16:08] LABS: Creatine Kinase 212 U/L (39-308)
[2023-06-25 16:16] LABS: Hemoglobin A1C 5.9 % (<5.7)
[2023-06-25 17:12] LABS: HDL Cholesterol 45 mg/dL (40-60); LDL CHOLESTEROL 120 mg/dL (<100)
== END 2023-06-25 15:02 | disposition home or self-care (01) ==
LOC: NCHCN 15:01
PROVIDERS: PCP Family Medicine; Visit Provider Nurse Practitioner Family
DX: R07.9 Chest pain, unspecified (principal); R79.89 Other specified abnormal findings of blood chemistry
CPT/HCPCS: 82550; 83721; 83036; 83718

== ENCOUNTER 2024-03-18 15:54 | Outpatient (REF) | payer BC, SELFPAY ==
[2024-03-18 16:29] LABS: Hemoglobin A1C 5.7 % (<5.7)
[2024-03-18 16:35] LABS: ALT 24 U/L (16-63); AST 20 U/L (15-37); Albumin 4.1 g/dL (3.4-5.0); Alkaline Phosphatase 55 U/L (46-116); Anion Gap 7.1 mmol/L (3-11); BUN 20 mg/dL (7-18); Bilirubin, Total 0.58 mg/dL (0.2-1.0); CO2 29.9 mmol/L (21.0-32.0); CREATININE 1.1 mg/dL (0.70-1.30); Calcium 9.4 mg/dL (8.5-10.1); Calculated LDL 88 mg/dL (<100); Chloride 104 mmol/L (98-107); Cholesterol 199 mg/dL (<200); Glucose 104 mg/dL (74-106); HDL Cholesterol 48 mg/dL (40-60); Potassium 4.4 mmol/L (3.5-5.1); Sodium 141 mmol/L (136-145); Total Protein 7.1 g/dL (6.4-8.2); Triglyceride 318 mg/dL (<150)
[2024-03-21 11:43] LABS: PSA, Screening 2.3 ng/mL (<=3.5)
== END 2024-03-18 15:55 | disposition home or self-care (01) ==
LOC: NCHCN 15:54
PROVIDERS: PCP Family Medicine; Visit Provider Family Medicine
DX: Z00.00 Encounter for general adult medical examination without abnormal findings (principal); E78.5 Hyperlipidemia, unspecified; Z12.5 Encounter for screening for malignant neoplasm of prostate
CPT/HCPCS: 80053; 80061; 84153; 83036